=== PATIENT | male | born 1930 | race Asian ===

== ENCOUNTER 2017-12-17 15:27 | Emergency (ER) | payer MEDICARE, OTHER ==
--- NOTE | 2017-12-17 16:35 | ED Physician Chart ---
ED Chief Complaint/HPI - Patient Information Date Seen:: 12/17/17 Time Seen:: 15:45 Chief Complaint:: Hip Pain History of Present Illness:: onset x one year of intermittent, bilateral MS type bilateral Hip and Pelvic Pain; pt denies trauma, H/As, S/t, neck pain, C/P, SOB, Abd. Pain, cough, A/N/V/ D/C, fever, chills, paresthesias, weakness, dizziness, gait changes, vertigo, or urinary s/s; pt's last tetans shot: < 5 years; UTD; pt denies injuries Allergies:: Allergies Allergy/AdvReac Type Severity Reaction Status Date / Time No Known Allergies Allergy Verified 08/06/16 12:22 Vitals:: Vital Signs - 8 hr 12/17/17 15:46 Temp 97.7 F HR 66 RR 16 BP 118/62 O2 Sat % 100 Historian:: Patient, Family Member Review:: Nurse's Note Reviewed ED Review of Systems - Review of Systems General/Constitutional: No fever, No chills, No weight loss, No weakness, No diaphoresis, No edema, No loss of appetite Skin: No skin lesions, No rash, No bruising Head: No headache, No light-headedness Eyes: No loss of vision, No pain, No diplopia ENT: No earache, No nasal drainage, No sore throat, No tinnitus Neck: No neck pain, No swelling, No thyromegaly, No stiffness, No mass noted Cardio Vascular: No chest pain, No palpitations, No PND, No orthopnea, No edema Pulmonary: No SOB, No cough, No sputum, No wheezing GI: No nausea, No vomiting, No diarrhea, No pain, No melena, No hematochezia, No constipation, No hematemesis G/U: No dysuria, No frequency, No hematuria, No nacturia Musculoskeletal: Bone or joint pain, Back pain, Muscle pain Endocrine: No polyuria, No polydipsia Psychiatric: No prior psych history, No depression, No anxiety, No suicidal ideation, No homicidal ideation, No auditory hallucination, No visual hallucination Hematopoietic: No bruising, No lymphadenopathy Allergic/Immuno: No urticaria, No angioedema Neurological: No syncope, No focal symptoms, No weakness, No paresthesia, No headache, No seizure, No dizziness, No confusion, No vertigo ED Past Medical History - Past Medical History Obtainable: Yes Past Medical History: HTN, Arthritis Family History: HTN Social History: Non Smoker, No Alcohol, No Drug Use, Surgical History: None Psychiatricy History: None Medication: Reviewed Family Medical History - Family Member Father History Unknown: Yes Living Status: Hx Family Hypertension: Yes ED Physical Exam - Physical Examination General/Constitutional: Awake, Well-developed, well-nourished, Alert, No distress, GCS 15, Non-toxic appearing, Ambulatory Head: Atraumatic Eyes: Lids, conjuctiva normal, PERRL, EOMI Skin: Nl inspection, No rash, No skin lesions, No ecchymosis, Well hydrated, No lymphadenopathy ENMT: External ears, nose nl, Nasal exam nl, Lips, teeth, gums nl Neck: Nontender, Full ROM w/o pain, No JVD, No nuchal rigidity, No bruit, No mass, No stridor Other Neck comments:: supple; no meningeal signs; no cervical tenderness; no bruits Respiratory: Nl effort/Exclusion, Clear to Auscultation, No Wheeze/Rhonchi/Rales Cardio Vascular: RRR, No murmur, gallop, rubs, NL S1 S2, Carotid/Femoral/Distal pulses equal bilaterally GI: No tenderness/rebounding/guarding, No organomegaly, No hernia, Normal BS's, Nondistended, No mass/bruits, No McBurney tenderness, Rectum exam nl Other GI comments:: no pulsatile masses : No CVA tenderness Extremities: No tenderness or effusion, Full ROM, normal strength in all extremities, No edema, Normal digits & nails Other Extremities comments:: mild bilateral hip tenderness with no loss of ROMs; Gait: WNL; good motor, tendon, and sensory functions; + DJD changes; good NV functions Neuro/Psych: Alert/oriented, DTR's symmetric, Normal sensory exam, Normal motor strength, Judgement/insight normal, Mood normal, Normal gait, No focal deficits Misc: Normal back, No paraspinal tenderness ED Labs/Radiology/EKG Results - Radiology Results Comments:: NAD; no Fxs/dislocations ED Septic Shock - . Is Septic Shock (SBP<90, OR Lactate>4 mmol\L) present?: No - <6hrs of presentation: Vital Signs: Vital Signs - 8 hr 12/17/17 15:46 Temp 97.7 F HR 66 RR 16 BP 118/62 O2 Sat % 100 ED Reassessment (Disposition) - Reassessment Reassessment:: pt is asymptomatic upon discharge Reassessment Condition:: Improved - Diagnosis Diagnosis:: Hip Pain; Osteoarthritis; Hip Sprains and Strains; Pelvic Pain-resolved - Aftercare/Follow up Instructions Aftercare/Follow-Up Instructions:: Counseled pt regarding lab results/diagnosis & need follow up, Refer to Discharge Instructions, Counseled pt & family regarding lab results/diagnosis & need follow up - Patient Disposition Discharge/Transfer:: Home Condition at Disposition:: Stable, Improved (X-Rays Instructions; RTER prn if existing s/s reoccur and/or get worse and/or any other new s/s occur; ACIs given for all above Dx; Refer to Orthopedist/[facility] TOMMY; F/U with PMD in one day or prn; RTER prn if concerned)
--- NOTE | 2017-12-18 08:04 | Diagnostic Imaging Report ---
CT scan of the pelvis without intravenous contrast HISTORY: Hip pain Total DLP equals 311 CTDI equals 10.5 Axial sections were obtained from a level above the iliac crest down to level below the pubic symphysis. The femoral heads exhibit normal contours bilaterally. No acute bony abnormalities are seen about the hips. No fractures. Subcortical cystic changes noted in the region of the femoral necks bilaterally. Findings somewhat more pronounced the right side. Such findings may predispose to fracture formation. No abnormal masses or fluid collections seen within the pelvis. Colonic diverticula noted. Degenerative changes seen within the visualized lower lumbar spine. IMPRESSION: 1. No acute abnormalities 2. Subcortical cyst formation in the region of the femoral necks bilaterally particularly on the right side. Such findings may predispose to fracture formation. 3. Degenerative changes within the visualized lower lumbar spine 4. Diverticulosis
== END 2017-12-17 19:38 | disposition home or self-care (01) ==
LOC: ER 15:27
DX: S73.109A Unspecified sprain of unspecified hip, initial encounter (principal); M19.90 Unspecified osteoarthritis, unspecified site; I10 Essential (primary) hypertension; X58.XXXA Exposure to other specified factors, initial encounter; Y93.89 Activity, other specified; Y92.89 Other specified places as the place of occurrence of the external cause; Y99.8 Other external cause status
CPT/HCPCS: 72192-TC; Z7502